=== PATIENT | female | born 1985 | race Caucasian/White ===

== ENCOUNTER 2018-07-17 21:53 | Emergency (ER) | payer MEDICARE, OTHER ==
[~2018-07-17] VITALS: Ht 170.2 cm; Wt 72.6 kg
[~2018-07-17 21:53] MED LIST: CYCLOBENZAPRINE10 MG ORAL; NAPROSYN500 M1 ORAL; TRAMADOL HCL50 MG ORAL
[2018-07-17 22:10] VITALS: BP 110/79
[2018-07-17] MEDS ORDERED: SYNTHROID75 MCG ORAL (22:10)
[2018-07-17] MEDS ORDERED: Morphine Sulfate 4mg/ml Inj (IV USE ONLY) IVP ONE (22:30)
[2018-07-17 22:40] LABS: APPEARANCE,URINE SLIGHTLY CLOUDY; BILIRUBIN, URINE NEGATIVE (NEGATIVE); COLOR,URINE PALE YELLOW; GLUCOSE, URINE (UA) NEGATIVE (NEGATIVE); KETONES,URINE NEGATIVE (NEGATIVE); LEUKOCYTE ESTERASE ,URINE 3+ (NEGATIVE); NITRITE,URINE POSITIVE (NEGATIVE); PH,URINE 6 (4.5-8.0); PROTEIN,URINE 3+ (NEGATIVE); UROBILINOGEN,URINE NORMAL MG/DL (0.0-1.0)
[2018-07-17 22:54] LABS: HEMATOCRIT 39.2 % (37.0-47.0); HEMOGLOBIN 13.1 G/DL (12.0-16.0); MEAN CORPUSCULAR VOLUME 87 FL (80-99); PLATELET COUNT 303 K/UL (150-450); RED BLOOD COUNT 4.51 M/UL (4.20-5.40); RED CELL DISTRIBUTION WIDTH 12.6 % (11.6-14.8); WHITE BLOOD COUNT 18.2 K/UL (4.8-10.8)
[2018-07-17 23:11] LABS: ANION GAP 10 mmol/L (5-15); BLOOD UREA NITROGEN 11 mg/dL (7-18); CALCIUM 9.3 MG/DL (8.5-10.1); CARBON DIOXIDE 27 MMOL/L (21-32); CHLORIDE 101 MMOL/L (98-107); CREATININE 0.8 MG/DL (0.55-1.30); POTASSIUM 3.7 MMOL/L (3.5-5.1); SODIUM 138 MMOL/L (136-145)
[2018-07-17 23:15] LABS: ALANINE AMINOTRANSFERASE 23 U/L (12-78); ALKALINE PHOSPHATASE 48 U/L (46-116); ASPARTATE AMINO TRANSFERASE 19 U/L (15-37); BILIRUBIN,TOTAL 0.4 MG/DL (0.2-1.0)
[2018-07-17] MEDS ORDERED: cefTRIAXone 1 GM in NS 55 ML IVPB ONE (23:45)
[2018-07-18] MEDS ORDERED: ONDANSETRON ODT4 MG BC (00:09)
[2018-07-18] MEDS ORDERED: CEPHALEXIN500 MG ORAL (00:09)
[2018-07-18] MEDS ORDERED: TRAMADOL HCL50 MG ORAL (00:09)
[2018-07-18 00:19] VITALS: BP 110/79
--- NOTE | 2018-07-18 01:19 | Emergency Room Report ---
History of Present Illness General Chief Complaint: Abdominal Pain Source: Patient Present Illness HPI 33-year-old female presents ED for evaluation. Complaining of lower back pain, dizziness, nausea 2 days. Also complaining of dysuria. Pain is dull, 9 out of 10, nonradiating. Thinks she has a kidney infection. Denies fevers or chills. Denies chest pain. Denies vaginal bleeding or discharge. No other aggravating relieving factors. Denies any other associated symptoms Allergies: Coded Allergies: No Known Allergies (Unverified , 07/08/14) Patient History Past Medical History: none Past Surgical History: none Pertinent Family History: none Social History: Denies: smoking, alcohol use, drug use Last Menstrual Period: 04/2018 Now: No - unk Immunizations: UTD Reviewed Nursing Documentation: PMH: Agreed; PSxH: Agreed Nursing Documentation-PMH Past Medical History: No History, Except For Hx Hypertension: No - hypothyroidism Review of Systems All Other Systems: negative except mentioned in HPI Physical Exam Vital Signs Date Time Temp Pulse Resp B/P (MAP) Pulse Ox O2 Delivery O2 Flow Rate FiO2 07/17/18 22:07 99.3 97 18 100 Room Air 07/17/18 22:10 110/79 Sp02 EP Interpretation: reviewed, normal General Appearance: no apparent distress, alert, GCS 15, non-toxic Head: normocephalic, atraumatic Eyes: bilateral eye normal inspection, bilateral eye PERRL ENT: hearing grossly normal, normal pharynx, no angioedema, normal voice Neck: full range of motion, supple/symm/no masses Respiratory: chest non-tender, lungs clear, normal breath sounds, speaking full sentences Cardiovascular #1: regular rate, rhythm, no edema Cardiovascular #2: 2+ carotid (R), 2+ carotid (L), 2+ radial (R), 2+ radial (L) , 2+ dorsalis pedis (R), 2+ dorsalis pedis (L) Gastrointestinal: normal bowel sounds, non tender, soft, non-distended, no guarding, no rebound Rectal: deferred Genitourinary: normal inspection, CVA tenderness (R), CVA tenderness (L) Musculoskeletal: back normal, gait/station normal, normal range of motion, non- tender Neurologic: alert, oriented x3, responsive, motor strength/tone normal, sensory intact, speech normal Psychiatric: judgement/insight normal, memory normal, mood/affect normal, no suicidal/homicidal ideation Reflexes: 3+ bicep (R), 3+ bicep (L), 3+ tricep (R), 3+ tricep (L), 3+ knee (R) , 3+ knee (L) Skin: normal color, no rash, warm/dry, well hydrated Lymphatic: no adenopathy Medical Decision Making Diagnostic Impression: Primary Impression: Pyelonephritis ER Course Hospital Course 33 yo F presents with dizziness, nausea, back pain and dysuria Differential diagnoses include: UTI, cystitis, pyelonephritis Clinical course Patient placed on stretcher. After initial history and physical I ordered UA, labs, IV fluids, pain Meds labs - leukocytosis noted, hbhematocrit stable, electrolytes okay, UA grossly positive Clinical findings concerning for pyelonephritis. Patient does have leukocytosis. Afebrile, vital stable. Discussed findings with patient. I offered option for admission but patient would prefer to be discharged. Given IV Rocephin in ED. patient did document that "Tylenol does not work". I reviewed cures and patient is receiving multiple narcotic prescriptions on a monthly basis. Safe for discharge with close outpatient follow-up. We'll provide referrals Diagnosis - pyelonephritis Stable and discharged home with prescriptions for Rx keflex, zofran. Followup with PMD. Return to ED if symptoms recur or worsen Labs Test 07/17/18 22:10 07/17/18 22:41 Urine Color Pale yellow Urine Appearance Slightly cloudy Urine pH 6 (4.5-8.0) Urine Specific [place] 1.010 (1.005-1.035) Urine Protein 3+ (NEGATIVE) Urine Glucose (UA) Negative (NEGATIVE) Urine Ketones Negative (NEGATIVE) Urine Blood 5+ (NEGATIVE) Urine Nitrite Positive (NEGATIVE) Urine Bilirubin Negative (NEGATIVE) Urine Urobilinogen Normal MG/DL (0.0-1.0) Urine Leukocyte Esterase 3+ (NEGATIVE) Urine RBC 2-4 /HPF (0 - 2) Urine WBC Tntc /HPF (0 - 2) Urine Squamous Epithelial Cells Occasional /LPF Urine Bacteria Moderate /HPF (NONE) Urine HCG, Qualitative Negative (NEGATIVE) White Blood Count 18.2 K/UL (4.8-10.8) Red Blood Count 4.51 M/UL (4.20-5.40) Hemoglobin 13.1 G/DL (12.0-16.0) Hematocrit 39.2 % (37.0-47.0) Mean Corpuscular Volume 87 FL (80-99) Mean Corpuscular Hemoglobin 29.0 PG (27.0-31.0) Mean Corpuscular Hemoglobin Concent 33.4 G/DL (32.0-36.0) Red Cell Distribution Width 12.6 % (11.6-14.8) Platelet Count 303 K/UL (150-450) Mean Platelet Volume 6.3 FL (6.5-10.1) Neutrophils (%) (Auto) % (45.0-75.0) Lymphocytes (%) (Auto) % (20.0-45.0) Monocytes (%) (Auto) % (1.0-10.0) Eosinophils (%) (Auto) % (0.0-3.0) Basophils (%) (Auto) % (0.0-2.0) Differential Total Cells Counted 100 Neutrophils % (Manual) 83 % (45-75) Lymphocytes % (Manual) 9 % (20-45) Monocytes % (Manual) 5 % (1-10) Eosinophils % (Manual) 0 % (0-3) Basophils % (Manual) 0 % (0-2) Band Neutrophils 3 % (0-8) Platelet Estimate Adequate Platelet Morphology Normal Red Blood Cell Morphology Normal Sodium Level 138 MMOL/L (136-145) Potassium Level 3.7 MMOL/L (3.5-5.1) Chloride Level 101 MMOL/L (98-107) Carbon Dioxide Level 27 MMOL/L (21-32) Anion Gap 10 mmol/L (5-15) Blood Urea Nitrogen 11 mg/dL (7-18) Creatinine 0.8 MG/DL (0.55-1.30) Estimat Glomerular Filtration Rate > 60 mL/min (>60) Glucose Level 110 MG/DL (74-106) Calcium Level 9.3 MG/DL (8.5-10.1) Total Bilirubin 0.4 MG/DL (0.2-1.0) Aspartate Amino Transf (AST/SGOT) 19 U/L (15-37) Alanine Aminotransferase (ALT/SGPT) 23 U/L (12-78) Alkaline Phosphatase 48 U/L (46-116) Total Protein 8.0 G/DL (6.4-8.2) Albumin 4.0 G/DL (3.4-5.0) Globulin 4.0 g/dL Albumin/Globulin Ratio 1.0 (1.0-2.7) Lipase 132 U/L (73-393) Last Vital Signs Date Time Temp Pulse Resp B/P (MAP) Pulse Ox O2 Delivery O2 Flow Rate FiO2 07/17/18 23:19 99.3 07/17/18 22:10 97 18 Room Air 07/17/18 22:10 110/79 100 Status: improved Disposition: HOME, SELF-CARE Condition: Stable Scripts Ondansetron Odt* (ZOFRAN ODT*) 4 Mg Tab.rapdis 4 MG BC EVERY 6 HOURS PRN for Nausea & Vomiting, #10 TAB 0 Refills Prov: Tex Herrera MD 07/18/18 Tramadol Hcl* (ULTRAM*) 50 Mg Tablet 50 MG ORAL Q6H PRN for For Pain for 3 Days, TAB 0 Refills Prov: Tex Herrera MD 07/18/18 Cephalexin* (KEFLEX*) 500 Mg Capsule 500 MG ORAL EVERY 6 HOURS for 7 Days, CAP Prov: Tex Herrera MD 07/18/18 Referrals: Kale [facility] Patient Instructions: Pyelonephritis, Adult, [id number] Tex Herrera MD July 18, 2018 01:19
== END 2018-07-18 00:22 | disposition home or self-care (01) ==
LOC: EMR 22:17
DX: N12 Tubulo-interstitial nephritis, not specified as acute or chronic (principal); E03.9 Hypothyroidism, unspecified
CPT/HCPCS: 36415; 80053; 81003; 81025; 83690; 85007; 85025; 87086; 96365; 96375; 99284; J0696; J2270; J7040